=== PATIENT | female | born 1935 | race Caucasian/White ===

== ENCOUNTER 2019-05-22 07:37 | Emergency (ER) | payer OTHER ==
[~2019-05-22] VITALS: Ht 167.6 cm; Wt 86.2 kg
[2019-05-22] MEDS ORDERED: COZAAR50 MG PO (07:54)
[2019-05-22] MEDS ORDERED: ATENOLOL25 MG PO (07:54)
[2019-05-22] MEDS ORDERED: URIN D.S. TABL1 EACH PO (12:45)
== END 2019-05-22 13:10 | disposition home or self-care (01) ==
LOC: ER 07:37
DX: N39.0 Urinary tract infection, site not specified (principal)

== ENCOUNTER 2021-12-06 10:58 | Outpatient (CLI) | payer OTHER ==
[~2021-12-06 10:58] MED LIST: ATENOLOL25 MG PO; COZAAR50 MG PO; URIN D.S. TABL1 EACH PO
== END 2021-12-06 11:00 | disposition home or self-care (01) ==
LOC: SONOGRAMA 10:58
PROVIDERS: ATTEND Pathology Anatomic Pathology & Clinical Pathology
DX: E04.2 Nontoxic multinodular goiter (principal)

== ENCOUNTER 2023-09-18 10:00 | Outpatient (CLI) | payer OTHER | END 2023-09-18 10:03 | disposition home or self-care (01) | LOC: SONOGRAMA 10:00 | PROVIDERS: ATTEND Pathology Anatomic Pathology & Clinical Pathology | DX: D34 Benign neoplasm of thyroid gland (principal); E07.89 Other specified disorders of thyroid; E04.1 Nontoxic single thyroid nodule ==